=== PATIENT | male | born 1970 | race Caucasian/White ===

== ENCOUNTER 2020-02-15 10:19 | Outpatient (CLI) | payer OTHER, SELFPAY ==
[2020-02-15 10:46] LABS: Basophils Absolute Auto 0.14 K/mm3 (0.00-0.10); Basophils Percent Auto 1.5 % (0.0-1.0); Eosinophils Absolute Auto 0.35 K/mm3 (0.02-0.50); Eosinophils Percent Auto 3.8 % (1.0-6.0); Hemoglobin 15.2 g/dL (14.0-18.0); Immature Granulocyte Absolute 0.05 K/mm3 (0.00-0.00); Immature Granulocyte Percent A 0.5 % (0.0-0.0); Immature Platelet Fraction Pct 2.6 % (1.0-7.0); Lymphocytes Absolute Auto 1.47 K/mm3 (1.10-4.50); Lymphocytes Percent Auto 15.9 % (18.0-42.0); Mean Corpuscular HGB Conc 32.3 g/dL (32.0-36.0); Mean Corpuscular Hemoglobin 26.7 pg (27.0-31.0); Mean Corpuscular Volume 82.6 fL (78.0-102.0); Mean Platelet Volume 9.5 fl (8.7-11.0); Monocytes Absolute Auto 0.41 K/mm3 (0.10-0.90); Monocytes Percent Auto 4.4 % (2.0-11.0); Neutrophils Absolute Auto 6.8 K/mm3 (1.7-7.2); Neutrophils Percent Auto 73.9 % (50.0-70.0); Platelet Count Result 658 K/mm3 (150-420); Red Blood Count 5.69 M/mm3 (4.70-6.10); Red Cell Distribution Width 14.9 % (11.6-14.4); White Blood Count 9.2 K/mm3 (4.8-10.8)
[2020-02-15 11:48] LABS: Alanine Aminotransferase 40 U/L (16-63); Albumin Level 4.3 g/dL (3.4-5.0); Alkaline Phosphatase 84 U/L (46-116); Anion Gap 10 mmol/L (8-16); Aspartate Amino Transferase < 10 U/L (15-37); Bilirubin,Total 0.3 mg/dL (0.00-1.00); Blood Urea Nitrogen 14 mg/dL (7-18); Calcium 9.3 mg/dL (8.5-10.1); Carbon Dioxide 25 mmol/L (21-32); Chloride 103 mmol/L (98-108); Estimated Glomerular Filt Rate > 60; Glucose 74 mg/dL (70-99); Osmolality Calculated 285 mOsm/kg (285-295); Potassium 5.3 mmol/L (3.5-5.1); Sodium 138 mmol/L (136-145); Total Protein 7.3 g/dL (6.4-8.2)
== END 2020-02-15 10:20 | disposition home or self-care (01) ==
PROVIDERS: PCP Family Medicine
DX: D47.1 Chronic myeloproliferative disease (principal)
CPT/HCPCS: 36415; 80053; 85025; 85055

== ENCOUNTER 2020-05-16 10:20 | Outpatient (CLI) | payer OTHER, SELFPAY ==
[2020-05-16 10:35] LABS: Hematocrit 49.3 % (40.0-54.0); Immature Platelet Fraction Pct 2.7 % (1.0-7.0); Mean Corpuscular HGB Conc 32.5 g/dL (32.0-36.0); Mean Corpuscular Hemoglobin 26.1 pg (27.0-31.0); Mean Corpuscular Volume 80.6 fL (78.0-102.0); Mean Platelet Volume 9.5 fl (8.7-11.0); Platelet Count Result 797 K/mm3 (150-420); Red Blood Count 6.12 M/mm3 (4.70-6.10); White Blood Count 9.5 K/mm3 (4.8-10.8)
[2020-05-16 10:57] LABS: Band Neutrophils Percent 0 % (0-6); Basophils Percent Manual 0 % (0-1); Eosinophils Absolute Manual 0.38 K/mm3 (0.02-0.5); Eosinophils Percent Manual 4 % (1-6); Lymphocytes Percent Manual 20 % (18-44); Monocytes Absolute Manual 0.57 K/mm3 (0.1-0.90); Monocytes Percent Manual 6 % (3-9); Neutrophils Absolute Manual 6.65 K/mm3 (1.3-6.7); Neutrophils Percent Manual 70 % (46-73); Total Cells Counted 100
[2020-05-16 10:58] LABS: Platelet Estimate Increased (Adequate)
[2020-05-16 11:54] LABS: Alanine Aminotransferase 29 U/L (16-63); Albumin Level 4.7 g/dL (3.4-5.0); Alkaline Phosphatase 75 U/L (46-116); Anion Gap 13 mmol/L (8-16); Aspartate Amino Transferase < 10 U/L (15-37); Bilirubin,Total 0.6 mg/dL (0.00-1.00); Blood Urea Nitrogen 13 mg/dL (7-18); Calcium 9.5 mg/dL (8.5-10.1); Carbon Dioxide 25 mmol/L (21-32); Chloride 99 mmol/L (98-108); Estimated Glomerular Filt Rate 57; Glucose 91 mg/dL (70-99); Osmolality Calculated 284 mOsm/kg (285-295); Potassium 5.4 mmol/L (3.5-5.1); Sodium 137 mmol/L (136-145); Total Protein 7.3 g/dL (6.4-8.2)
== END 2020-05-16 10:21 | disposition home or self-care (01) ==
LOC: CHSLAB 10:25
PROVIDERS: PCP Family Medicine
DX: D47.1 Chronic myeloproliferative disease (principal)
CPT/HCPCS: 36415; 80053; 85025; 85055

== ENCOUNTER 2020-08-22 10:18 | Outpatient (CLI) | payer OTHER, SELFPAY ==
[2020-08-22 10:35] LABS: Basophils Percent Auto 1.3 % (0.0-1.0); Eosinophils Absolute Auto 0.26 K/mm3 (0.02-0.50); Eosinophils Percent Auto 3.4 % (1.0-6.0); Hematocrit 45.8 % (40.0-54.0); Hemoglobin 14.8 g/dL (14.0-18.0); Immature Granulocyte Absolute 0.02 K/mm3 (0.00-0.00); Immature Granulocyte Percent A 0.3 % (0.0-0.0); Lymphocytes Absolute Auto 1.32 K/mm3 (1.10-4.50); Lymphocytes Percent Auto 17.5 % (18.0-42.0); Mean Corpuscular HGB Conc 32.3 g/dL (32.0-36.0); Mean Corpuscular Hemoglobin 25.9 pg (27.0-31.0); Mean Corpuscular Volume 80.1 fL (78.0-102.0); Mean Platelet Volume 9.1 fl (8.7-11.0); Neutrophils Absolute Auto 5.6 K/mm3 (1.7-7.2); Neutrophils Percent Auto 73.5 % (50.0-70.0); Platelet Count Result 566 K/mm3 (150-420); Red Blood Count 5.72 M/mm3 (4.70-6.10); Red Cell Distribution Width 15.8 % (11.6-14.4); White Blood Count 7.6 K/mm3 (4.8-10.8)
[2020-08-22 11:27] LABS: Alanine Aminotransferase 25 U/L (16-63); Albumin Level 4.3 g/dL (3.4-5.0); Alkaline Phosphatase 73 U/L (46-116); Anion Gap 10 mmol/L (8-16); Aspartate Amino Transferase < 10 U/L (15-37); Bilirubin,Total 0.4 mg/dL (0.00-1.00); Blood Urea Nitrogen 14 mg/dL (7-18); Calcium 9.2 mg/dL (8.5-10.1); Carbon Dioxide 27 mmol/L (21-32); Chloride 103 mmol/L (98-108); Estimated Glomerular Filt Rate > 60; Glucose 76 mg/dL (70-99); Osmolality Calculated 289 mOsm/kg (285-295); Potassium 5.3 mmol/L (3.5-5.1); Sodium 140 mmol/L (136-145); Total Protein 6.8 g/dL (6.4-8.2)
== END 2020-08-22 10:19 | disposition home or self-care (01) ==
PROVIDERS: PCP Family Medicine; Visit Provider Internal Medicine Hematology & Oncology
DX: D47.1 Chronic myeloproliferative disease (principal)
CPT/HCPCS: 36415; 80053; 85025

== ENCOUNTER 2020-12-19 10:27 | Outpatient (CLI) | payer OTHER, SELFPAY ==
[2020-12-19 10:42] LABS: Basophils Percent Auto 1.2 % (0.0-1.0); Eosinophils Absolute Auto 0.27 K/mm3 (0.02-0.50); Eosinophils Percent Auto 3.1 % (1.0-6.0); Hematocrit 45.5 % (40.0-54.0); Immature Granulocyte Absolute 0.04 K/mm3 (0.00-0.00); Immature Granulocyte Percent A 0.5 % (0.0-0.0); Immature Platelet Fraction Pct 2.8 % (1.0-7.0); Lymphocytes Percent Auto 17.3 % (18.0-42.0); Mean Corpuscular Volume 78.9 fL (78.0-102.0); Mean Platelet Volume 9.6 fl (8.7-11.0); Monocytes Percent Auto 4.6 % (2.0-11.0); Neutrophils Absolute Auto 6.4 K/mm3 (1.7-7.2); Neutrophils Percent Auto 73.3 % (50.0-70.0); Platelet Count Result 692 K/mm3 (150-420); Red Blood Count 5.77 M/mm3 (4.70-6.10); Red Cell Distribution Width 14.6 % (11.6-14.4); White Blood Count 8.7 K/mm3 (4.8-10.8)
[2020-12-22 10:54] LABS: Alanine Aminotransferase 32 U/L (16-63); Alkaline Phosphatase 81 U/L (46-116); Anion Gap 11 mmol/L (8-16); Aspartate Amino Transferase < 10 U/L (15-37); Bilirubin,Total 0.3 mg/dL (0.00-1.00); Blood Urea Nitrogen 11 mg/dL (7-18); Calcium 8.9 mg/dL (8.5-10.1); Carbon Dioxide 25 mmol/L (21-32); Chloride 103 mmol/L (98-108); Estimated Glomerular Filt Rate > 60; Glucose 63 mg/dL (70-99); Lactate Dehydrogenase 209 U/L (85-227); Osmolality Calculated 285 mOsm/kg (285-295); Potassium 5.5 mmol/L (3.5-5.1); Sodium 139 mmol/L (136-145); Total Protein 6.7 g/dL (6.4-8.2)
== END 2020-12-19 10:28 | disposition home or self-care (01) ==
LOC: CHSLAB 10:29
PROVIDERS: PCP Family Medicine; Visit Provider Internal Medicine Hematology & Oncology
DX: D47.1 Chronic myeloproliferative disease (principal)
CPT/HCPCS: 36415; 80053; 83615; 85025; 85055

== ENCOUNTER 2021-04-08 09:25 | Outpatient (CLI) | payer OTHER, SELFPAY ==
--- NOTE | ~2021-04-08 | MR_ITS ---
EXAMINATION: MR lumbar spine wo con DATE: 04/08/2021 10:36 INDICATION: Left-sided lumbar radiculopathy. Low back pain. TECHNIQUE: Magnetic resonance imaging (MRI) of the lumbar spine was performed without intravenous con trast. Sequences included sagittal T2-weighted FSE, sagittal T2-weighted FS FSE, sagittal T1-weighted FSE, and axial T2-weighted FSE. COMPARISON: None FINDINGS: There is 7 degrees dextrocurvature of thoracolumbar spine. There is mild chronic anterior w edging of T12-L2 vertebral bodies. There are Schmorl's nodes at most levels. There is mildly decrease d disc height at T12-L1. The distal spinal cord signal intensity is normal. The conus medullaris is a t T12. The following disc levels are specifically discussed: L1-L2: The disc is mildly bulging. There is mild bilateral facet joint osteoarthritis. There is mild left neural foraminal stenosis. There is mild central canal stenosis. L2-L3: The disc is mildly bulging. There is mild bilateral facet joint osteoarthritis. There is mild left neural foraminal stenosis. There is no central canal stenosis. L3-L4: The disc is bulging. There is mild bilateral facet joint osteoarthritis. There is mild bilater al neural foraminal stenosis. There is mild central canal stenosis. L4-L5: The disc is bulging and has an annular fissure. There is mild bilateral facet joint osteoarthr itis. There is mild bilateral neural foraminal stenosis. There is mild central canal stenosis. L5-S1: The disc does not extend beyond the endplate margin. There is mild bilateral facet joint osteo arthritis. There is no neural foraminal stenosis. There is no central canal stenosis. IMPRESSION: 1. Mild lumbar spondylosis. Reviewed, dictated and finalized at location E. L STRUCTURAL DESIGNER IMPRESSION: 1. Mild lumbar spondylosis.
== END 2021-04-08 09:26 | disposition home or self-care (01) ==
LOC: CHSIMG 09:26
PROVIDERS: PCP Family Medicine; Visit Provider Family Medicine
DX: M54.10 Radiculopathy, site unspecified (principal)
CPT/HCPCS: 72148

== ENCOUNTER 2021-05-16 09:52 | Outpatient (CLI) | payer OTHER, SELFPAY ==
[2021-05-16 11:00] LABS: SARS-CoV-2 RNA PCR Negative (Negative)
== END 2021-05-16 09:53 | disposition home or self-care (01) ==
PROVIDERS: PCP Family Medicine; Visit Provider Family Medicine
DX: Z01.818 Encounter for other preprocedural examination (principal); Z20.822 Contact with and (suspected) exposure to COVID-19
CPT/HCPCS: C9803; U0003; U0005

== ENCOUNTER 2021-05-29 09:00 | Outpatient (RCR) | payer OTHER, SELFPAY | END 2021-06-14 23:59 | disposition home or self-care (01) | LOC: CHSWOUND 09:00 | PROVIDERS: PCP Family Medicine; Visit Provider Nurse Practitioner Family | DX: I70.245 Atherosclerosis of native arteries of left leg with ulceration of other part of foot (principal); L97.524 Non-pressure chronic ulcer of other part of left foot with necrosis of bone; D47.1 Chronic myeloproliferative disease; R20.0 Anesthesia of skin; Z95.820 Peripheral vascular angioplasty status with implants and grafts | CPT/HCPCS: 11042; 87070; 87147; 87186; 87205; 97597; 99204; G0463 ==

== ENCOUNTER 2021-06-05 08:20 | Outpatient (CLI) | payer OTHER, SELFPAY ==
[2021-06-05 10:43] LABS: SARS-CoV-2 RNA PCR Negative (Negative)
== END 2021-06-05 08:21 | disposition home or self-care (01) ==
LOC: CHSLAB 08:23
PROVIDERS: PCP Family Medicine; Visit Provider Family Medicine
DX: Z01.818 Encounter for other preprocedural examination (principal); Z20.822 Contact with and (suspected) exposure to COVID-19
CPT/HCPCS: C9803; U0003; U0005

== ENCOUNTER 2021-07-03 08:51 | Outpatient (RCR) | payer OTHER, SELFPAY | END 2021-07-19 23:59 | disposition home or self-care (01) | LOC: CHSWOUND 08:51 | PROVIDERS: PCP Family Medicine; Visit Provider Nurse Practitioner Family | DX: I70.245 Atherosclerosis of native arteries of left leg with ulceration of other part of foot (principal); L97.526 Non-pressure chronic ulcer of other part of left foot with bone involvement without evidence of necrosis; D47.1 Chronic myeloproliferative disease; Z87.891 Personal history of nicotine dependence | CPT/HCPCS: 11042; 87070; 87205 ==

== ENCOUNTER 2021-07-03 09:49 | Outpatient (CLI) | payer OTHER, SELFPAY ==
--- NOTE | ~2021-07-03 | XR_ITS ---
EXAMINATION: XR foot LT min 3V DATE: 07/03/2021 10:14 INDICATION: Left foot pain TECHNIQUE: Dorsoplantar, lateral, and oblique views of the left foot were obtained. COMPARISON: None. FINDINGS: Bone alignment is normal. There is no fracture. There is severe osteoarthritis at the first interphalangeal joint. Mild osteoarthritis is noted at the first metatarsophalangeal joint and in se veral interphalangeal joints. There is mild soft tissue swelling of the first toe. IMPRESSION: 1. Soft tissue swelling of the first toe without acute osseous abnormality. 2. Polyarticular osteoarthritis. Reviewed, dictated and finalized at location A.
== END 2021-07-03 09:50 | disposition home or self-care (01) ==
LOC: CHSIMG 09:52
PROVIDERS: PCP Family Medicine; Visit Provider Nurse Practitioner Family
DX: L97.524 Non-pressure chronic ulcer of other part of left foot with necrosis of bone (principal)
CPT/HCPCS: 73630

== ENCOUNTER 2021-08-01 09:11 | Outpatient (CLI) | payer OTHER, SELFPAY ==
--- NOTE | ~2021-08-01 | MR_ITS ---
EXAMINATION: MR foot LT wo/w con DATE: 08/01/2021 10:44 INDICATION: Left foot osteomyelitis and pain. TECHNIQUE: Magnetic resonance imaging (MRI) of the left foot was performed without and with 20 mL Mul tiHance intravenous contrast. COMPARISON: Left foot radiographs 07/03/2021 FINDINGS: Bone alignment is normal. There is bone marrow edema in proximal half of first distal phala nx and distal half of first proximal phalanx characterized by decreased T1-weighted signal intensity and contrast enhancement, consistent with osteomyelitis. There is a small area of nonenhancing nonvia ble bone in first distal phalanx. There are erosions at first interphalangeal joint, consistent with septic arthritis. There is mild osteoarthritis of many of the metatarsophalangeal and interphalangeal joints. The flexor tendons are intact. IMPRESSION: 1. Osteomyelitis involving first distal phalanx and first proximal phalanx with septic arthritis of f irst interphalangeal joint. Small area of nonviable bone in first distal phalanx. Reviewed, dictated and finalized at location A. IMPRESSION: 1. Osteomyelitis involving first distal phalanx and first proximal phalanx with septic arthritis of first interphalangeal joint. Small area of nonviable bone in first distal phalanx.
== END 2021-08-01 09:12 | disposition home or self-care (01) ==
LOC: CHSIMG 09:12
PROVIDERS: PCP Family Medicine
DX: I70.209 Unspecified atherosclerosis of native arteries of extremities, unspecified extremity (principal)
CPT/HCPCS: 73720; A9577

== ENCOUNTER 2022-05-07 10:12 | Outpatient (CLI) | payer OTHER, SELFPAY ==
[2022-05-07 10:27] LABS: Basophils Absolute Auto 0.11 K/mm3 (0.00-0.10); Basophils Percent Auto 1.1 % (0.0-1.0); Eosinophils Absolute Auto 0.22 K/mm3 (0.02-0.50); Eosinophils Percent Auto 2.1 % (1.0-6.0); Hematocrit 44.6 % (40.0-54.0); Hemoglobin 14.3 g/dL (14.0-18.0); Immature Granulocyte Absolute 0.06 K/mm3 (0.00-0.00); Immature Granulocyte Percent A 0.6 % (0.0-0.0); Immature Platelet Fraction Pct 2.7 % (1.0-7.0); Lymphocytes Absolute Auto 1.34 K/mm3 (1.10-4.50); Lymphocytes Percent Auto 12.8 % (18.0-42.0); Mean Corpuscular HGB Conc 32.1 g/dL (32.0-36.0); Mean Corpuscular Hemoglobin 24.3 pg (27.0-31.0); Mean Corpuscular Volume 75.9 fL (78.0-102.0); Monocytes Absolute Auto 0.55 K/mm3 (0.10-0.90); Monocytes Percent Auto 5.3 % (2.0-11.0); Neutrophils Absolute Auto 8.2 K/mm3 (1.7-7.2); Neutrophils Percent Auto 78.1 % (50.0-70.0); Platelet Count Result 724 K/mm3 (150-420); Red Blood Count 5.88 M/mm3 (4.70-6.10); Red Cell Distribution Width 16.4 % (11.6-14.4); White Blood Count 10.5 K/mm3 (4.8-10.8)
[2022-05-07 11:00] LABS: Alanine Aminotransferase 58 U/L (16-63); Albumin Level 4.1 g/dL (3.4-5.0); Alkaline Phosphatase 80 U/L (46-116); Anion Gap 7 mmol/L (8-16); Aspartate Amino Transferase 16 U/L (15-37); Bilirubin,Total 0.5 mg/dL (0.00-1.00); Blood Urea Nitrogen 8 mg/dL (7-18); Calcium 9.6 mg/dL (8.5-10.1); Carbon Dioxide 29 mmol/L (21-32); Chloride 106 mmol/L (98-108); Estimated Glomerular Filt Rate > 60; Glucose 88 mg/dL (70-99); Osmolality Calculated 291 mOsm/kg (285-295); Sodium 142 mmol/L (136-145); Total Protein 7.3 g/dL (6.4-8.2)
== END 2022-05-07 10:13 | disposition home or self-care (01) ==
LOC: CHSLAB 10:14
PROVIDERS: PCP Family Medicine; Visit Provider Internal Medicine Hematology & Oncology
DX: D45 Polycythemia vera (principal)
CPT/HCPCS: 36415; 80053; 85025; 85055

== ENCOUNTER 2022-11-22 10:37 | Outpatient (CLI) | payer OTHER, SELFPAY ==
[2022-11-22 10:50] LABS: Basophils Absolute Auto 0.12 K/mm3 (0.00-0.10); Basophils Percent Auto 1.3 % (0.0-1.0); Eosinophils Absolute Auto 0.17 K/mm3 (0.02-0.50); Eosinophils Percent Auto 1.8 % (1.0-6.0); Hematocrit 44.4 % (40.0-54.0); Hemoglobin 14.5 g/dL (14.0-18.0); Immature Granulocyte Absolute 0.05 K/mm3 (0.00-0.00); Immature Granulocyte Percent A 0.5 % (0.0-0.0); Immature Platelet Fraction Pct 2.2 % (1.0-7.0); Lymphocytes Absolute Auto 1.27 K/mm3 (1.10-4.50); Lymphocytes Percent Auto 13.8 % (18.0-42.0); Mean Corpuscular HGB Conc 32.7 g/dL (32.0-36.0); Mean Corpuscular Hemoglobin 25.3 pg (27.0-31.0); Mean Corpuscular Volume 77.5 fL (78.0-102.0); Mean Platelet Volume 8.9 fl (8.7-11.0); Monocytes Absolute Auto 0.46 K/mm3 (0.10-0.90); Neutrophils Absolute Auto 7.1 K/mm3 (1.7-7.2); Neutrophils Percent Auto 77.6 % (50.0-70.0); Platelet Count Result 732 K/mm3 (150-420); Red Blood Count 5.73 M/mm3 (4.70-6.10); Red Cell Distribution Width 15.1 % (11.6-14.4); White Blood Count 9.2 K/mm3 (4.8-10.8)
== END 2022-11-22 10:38 | disposition home or self-care (01) ==
LOC: CHSLAB 10:39
PROVIDERS: PCP Family Medicine; Visit Provider Internal Medicine Hematology & Oncology
DX: D45 Polycythemia vera (principal)
CPT/HCPCS: 36415; 85025; 85055

== ENCOUNTER 2023-07-23 08:18 | Outpatient (CLI) | payer OTHER, SELFPAY ==
[2023-07-23 08:36] LABS: Basophils Absolute Auto 0.13 K/mm3 (0.00-0.10); Basophils Percent Auto 1.3 % (0.0-1.0); Eosinophils Percent Auto 3.1 % (1.0-6.0); Hematocrit 48.7 % (40.0-54.0); Hemoglobin 15.2 g/dL (14.0-18.0); Immature Granulocyte Absolute 0.03 K/mm3 (0.00-0.00); Immature Granulocyte Percent A 0.3 % (0.0-0.0); Immature Platelet Fraction Pct 2.6 % (1.0-7.0); Lymphocytes Percent Auto 16.4 % (18.0-42.0); Mean Corpuscular HGB Conc 31.2 g/dL (32-36); Mean Corpuscular Hemoglobin 23.9 pg (27.0-31.0); Mean Corpuscular Volume 76.6 fL (78.0-102.0); Mean Platelet Volume 9.2 fl (8.7-11.0); Monocytes Absolute Auto 0.43 K/mm3 (0.10-0.90); Monocytes Percent Auto 4.4 % (2.0-11.0); Neutrophils Absolute Auto 7.28 K/mm3 (1.70-7.20); Neutrophils Percent Auto 74.5 % (50.0-70.0); Platelet Count Result 809 K/mm3 (150-420); Red Blood Count 6.36 M/mm3 (4.70-6.10); Red Cell Distribution Width 15.5 % (11.6-14.4); White Blood Count 9.8 K/mm3 (4.8-10.8)
== END 2023-07-23 08:19 | disposition home or self-care (01) ==
LOC: CHSLAB 08:20
PROVIDERS: PCP Family Medicine; Visit Provider Internal Medicine Hematology & Oncology
DX: D45 Polycythemia vera (principal)
CPT/HCPCS: 36415; 85025; 85055

== ENCOUNTER 2024-01-21 08:38 | Outpatient (CLI) | payer OTHER, SELFPAY ==
[2024-01-21 09:03] LABS: Basophils Absolute Auto 0.14 K/mm3 (0.00-0.10); Basophils Percent Auto 1.8 % (0.0-1.0); Eosinophils Percent Auto 2.6 % (1.0-6.0); Hematocrit 39.6 % (40.0-54.0); Hemoglobin 13.4 g/dL (14.0-18.0); Immature Granulocyte Absolute 0.06 K/mm3 (0.00-0.00); Immature Granulocyte Percent A 0.8 % (0.0-0.0); Immature Platelet Fraction Pct 3.3 % (1.0-7.0); Lymphocytes Absolute Auto 1.36 K/mm3 (1.10-4.50); Lymphocytes Percent Auto 17.9 % (18.0-42.0); Mean Corpuscular HGB Conc 33.8 g/dL (32-36); Mean Corpuscular Hemoglobin 25.5 pg (27.0-31.0); Mean Corpuscular Volume 75.3 fL (78.0-102.0); Mean Platelet Volume 9.4 fl (8.7-11.0); Monocytes Absolute Auto 0.43 K/mm3 (0.10-0.90); Monocytes Percent Auto 5.7 % (2.0-11.0); Neutrophils Absolute Auto 5.39 K/mm3 (1.70-7.20); Neutrophils Percent Auto 71.2 % (50.0-70.0); Platelet Count Result 701 K/mm3 (150-420); Red Blood Count 5.26 M/mm3 (4.70-6.10); Red Cell Distribution Width 13.9 % (11.6-14.4); White Blood Count 7.6 K/mm3 (4.8-10.8)
[2024-01-21 09:50] LABS: Alanine Aminotransferase 73 U/L (16-63); Albumin Level 3.8 g/dL (3.4-5.0); Alkaline Phosphatase 109 U/L (46-116); Anion Gap 6 mmol/L (4-12); Aspartate Amino Transferase 22 U/L (15-37); Bilirubin,Total 0.3 mg/dL (0.00-1.00); Blood Urea Nitrogen 8 mg/dL (7-18); Calcium 9.3 mg/dL (8.5-10.1); Carbon Dioxide 29 mmol/L (21-32); Chloride 102 mmol/L (98-108); Estimated Glomerular Filt Rate > 60; Glucose 104 mg/dL (70-99); Osmolality Calculated 282 mOsm/kg (285-295); Potassium 4.9 mmol/L (3.5-5.1); Sodium 137 mmol/L (136-145); Total Protein 6.8 g/dL (6.4-8.2)
== END 2024-01-21 08:39 | disposition home or self-care (01) ==
LOC: CHSLAB 08:43
PROVIDERS: PCP Family Medicine
DX: D45 Polycythemia vera (principal)
CPT/HCPCS: 36415; 80053; 85025; 85055

== ENCOUNTER 2024-04-28 09:14 | Outpatient (CLI) | payer OTHER, SELFPAY ==
[2024-04-28 09:20] VITALS: BMI 27.4
[2024-04-28 09:40] VITALS: BP 146/89; PULSE 78; RESP 16; TEMP 36.4; O2SAT 99
[2024-04-28 09:43] LABS: Basophils Absolute Auto 0.14 K/mm3 (0.00-0.10); Basophils Percent Auto 1.2 % (0.0-1.0); Eosinophils Absolute Auto 0.23 K/mm3 (0.02-0.50); Eosinophils Percent Auto 1.9 % (1.0-6.0); Hemoglobin 15.2 g/dL (14.0-18.0); Immature Granulocyte Absolute 0.04 K/mm3 (0.00-0.00); Immature Granulocyte Percent A 0.3 % (0.0-0.0); Immature Platelet Fraction Pct 2.1 % (1.0-7.0); Lymphocytes Absolute Auto 1.72 K/mm3 (1.10-4.50); Lymphocytes Percent Auto 14.5 % (18.0-42.0); Mean Corpuscular HGB Conc 30.4 g/dL (32-36); Mean Corpuscular Hemoglobin 22.2 pg (27.0-31.0); Mean Platelet Volume 9.1 fl (8.7-11.0); Monocytes Absolute Auto 0.58 K/mm3 (0.10-0.90); Monocytes Percent Auto 4.9 % (2.0-11.0); Neutrophils Absolute Auto 9.16 K/mm3 (1.70-7.20); Neutrophils Percent Auto 77.2 % (50.0-70.0); Platelet Count Result 974 K/mm3 (150-420); Red Blood Count 6.85 M/mm3 (4.70-6.10); White Blood Count 11.9 K/mm3 (4.8-10.8)
--- OUTSIDE RECORDS SUMMARY | 2024-04-28 10:01 | XMS_ITS | Data Portability ---
Author [facility] Address [address] [place] [address] Assessment No assessment recorded. Plan of Treatment Reminders Order Date Submit Date Provider Last Modified By Organization Details Last Modified Time Details Appointments None recorded. Lab None recorded. Referral pain management referral 2015 016 wayne Villalobos, [address] [facility] , [address] [address], [place], [address], 6 12:10:03 mental health specialist referral - rheumatolo gy wants him seen by podiatry 2014 015 WILIAM Rudolph, [address] [place] [address], [address], 5 18:00:29 Procedures None recorded. Surgeries None recorded. Imaging x-ray, hip 2 views 2015 016 [facility], [address] [place], [address], 6 13:17:43 Medication Orders [place] 5 mg-325 mg tablet 2015 Rita bbertoglio 1 [id number], [address] , [place], [place], [id number], 6 09:41:56 [place] 5 mg-[address] [facility], [address], [place], [address], 6 11:51:13 [place] 5 mg-325 mg tablet [address] [facility], [address] [place], [address], 5 12:33:41 [place] 5 mg-325 mg tablet [address] [facility], [address] [place], [address], 5 15:07:30 Patient TargetsNo targets recorded. Patient Instructions Encounter Date Encounter Id Patient Instructions Last Modified By Organization Details Last Modified Time 09/27/2014 [id number] leg pain: care instructions [email or web address] Not available 09/27/2014 15:09:22 11/05/2014 [id number] leg pain: care instructions [email or web address] Not available 11/05/2014 12:21:00 03/16/2015 [id number] leg pain: care instructions [email or web address] Not available 03/16/2015 11:29:53 06/21/2015 [id number] hip pain: care instructions [email or web address] Not available 06/21/2015 16:56:37 leg pain: care instructions [email or web address] Not available 06/21/2015 16:56:37 Reason for Referral Hospital Medical Assistant Referral for Vasc ulitis of the skin vasculitis and left foot pain rheumatology wants him seen by podiatry Referring Physician: Alonso Chan [facility], Encounter Date: 02/09/2015 Pain Management Referral for Pain in lower limb pain in lft foot and leg due to PVD Referring Physician: Alonso Chan [facility], Encounter Date: 03/16/2015 Results Created Date Observation Date Name Description Value Unit Range Abnormal Flag Note LastModifiedBy Organization Detail LastModifiedTime 02/10/20 15 02/17/2015 drug scree n, urine summary FINAL ===== ===== ===== ===== ===== ===== ===== ===== ===== ===== ===== ===== ===== === TOXAS SURE COMP DRUG SRINIVAS SIS,U R ===== ===== ===== ===== ===== ===== ===== ===== ===== ===== ===== ===== ===== === TEST RESUL T FLAG UNITS DRUG PRESE NT AND DECLA RED FOR PRESC RIPTI ON VERIF ICATI ON HYDRO CODON E 285 EXPEC JAELYN NG/MG CREAT HYDRO MORPH ONE 763 EXPEC JAELYN NG/MG CREAT DIHYD ROCOD EINE 140 EXPEC JAELYN NG/MG CREAT NORHY DROCO DONE 1367 EXPEC JAELYN NG/MG CREAT SOURC ES OF HYDRO CODON E INCLU DE SCHED ULED PRESC RIPTI ON MEDIC ATION S. HYDRO MORPH ONE, DIHYD ROCOD EINE AND NORHY DROCO DONE ARE EXPEC JAELYN METAB OLITE S OF HYDRO CODON E. HYDRO MORPH ONE AND DIHYD ROCOD EINE ARE ALSO AVAIL ABLE SCHED ULED PRESC RIPTI ON MEDIC ATION S. DRUG PRESE NT NOT DECLA RED FOR PRESC RIPTI ON VERIF ICATI ON CARBO XY-TH C >704 UNEXP ECTED NG/MG CREAT CARBO XY-TH C IS A METAB OLITE OF TETRA HYDRO CANNA BINOL (THC) . SOURC E OF THC IS MOST COMMO NLY ILLIC IT, BUT THC IS ALSO PRESE NT IN A SCHED ULED PRESC RIPTI ON MEDIC ATION . SALIC YLATE PRESE NT UNEXP ECTED NAPRO XEN PRESE NT UNEXP ECTED DRUG ABSEN T BUT DECLA RED FOR PRESC RIPTI ON VERIF ICATI ON ACETA MINOP HEN NOT DETEC JAELYN UNEXP ECTED ACETA MINOP HEN, INDIC ATED IN THE DECLA RED MEDIC ATION LIST, IS NOT ALWAY S DETEC JAELYN EVEN WHEN USED DIREC JAELYN. ===== ===== ===== ===== ===== ===== ===== ===== ===== ===== ===== ===== ===== === TEST RESUL T FLAG UNITS REF RANGE CREAT ININE 142 MG/DL >=20 ===== ===== ===== ===== ===== ===== ===== ===== ===== ===== ===== ===== ===== === DECLA RED MEDIC ATION S: THE SACHIN ING AND INTER PRETA TION ON THIS REPOR T ARE BASED ON THE FOLLO WING DECLA RED MEDIC ATION S. UNEXP ECTED RESUL TS MAY ARISE FROM INACC URACI ES IN THE DECLA RED MEDIC ATION S. NOT E: THE TESTI NG SCOPE OF THIS PANEL INCLU FOSTER THESE MEDIC ATION S: HYDRO CODON E (NORC O) NOT E: THE TESTI NG SCOPE OF THIS PANEL DOES NOT INCLU DE SMALL TO MODER ATE AMOUN TS OF THESE REPOR JAELYN MEDIC ATION S: ACETA MINOP HEN (NORC O) ===== ===== ===== ===== ===== ===== ===== ===== ===== ===== ===== ===== ===== === FOR CLINI CARLO CONSU LTATI ON, PLEAS E CALL [phone]. ===== ===== ===== ===== ===== ===== ===== ===== ===== ===== ===== ===== ===== === Not Available [facility] [address] [facility] [place], [address], 02/17/2015 09:29:33 02/10/20 15 02/17/2015 drug scree n, urine pdf . Not Available [facility] [address] [facility] [place], [address], 02/17/2015 09:29:33 08/26/19 16 09/04/2015 drug scree n, urine summary FINAL ===== ===== ===== ===== ===== ===== ===== ===== ===== ===== ===== ===== ===== === TOXAS SURE COMP DRUG SRINIVAS SIS,U R ===== ===== ===== ===== ===== ===== ===== ===== ===== ===== ===== ===== ===== === TEST RESUL T FLAG UNITS DRUG PRESE NT NOT DECLA RED FOR PRESC RIPTI ON VERIF ICATI ON CARBO XY-TH C 883 UNEXP ECTED NG/MG CREAT CARBO XY-TH C IS A METAB OLITE OF TETRA HYDRO CANNA BINOL (THC) . SOURC E OF THC IS MOST COMMO NLY ILLIC IT, BUT THC IS ALSO PRESE NT IN A SCHED ULED PRESC RIPTI ON MEDIC ATION . NAPRO XEN PRESE NT UNEXP ECTED DRUG ABSEN T BUT DECLA RED FOR PRESC RIPTI ON VERIF ICATI ON HYDRO CODON E NOT DETEC JAELYN UNEXP ECTED NG/MG CREAT ACETA MINOP HEN NOT DETEC JAELYN UNEXP ECTED ACETA MINOP HEN, INDIC ATED IN THE DECLA RED MEDIC ATION LIST, IS NOT ALWAY S DETEC JAELYN EVEN WHEN USED DIREC JAELYN. ===== ===== ===== ===== ===== ===== ===== ===== ===== ===== ===== ===== ===== === TEST RESUL T FLAG UNITS REF RANGE CREAT ININE 36 MG/DL >=20 ===== ===== ===== ===== ===== ===== ===== ===== ===== ===== ===== ===== ===== === DECLA RED MEDIC ATION S: THE SACHIN ING AND INTER PRETA TION ON THIS REPOR T ARE BASED ON THE FOLLO WING DECLA RED MEDIC ATION S. UNEXP ECTED RESUL TS MAY ARISE FROM INACC URACI ES IN THE DECLA RED MEDIC ATION S. NOT E: THE TESTI NG SCOPE OF THIS PANEL INCLU FOSTER THESE MEDIC ATION S: HYDRO CODON E (NORC O) NOT E: THE TESTI NG SCOPE OF THIS PANEL DOES NOT INCLU DE SMALL TO MODER ATE AMOUN TS OF THESE REPOR JAELYN MEDIC ATION S: ACETA MINOP HEN (NORC O) NOT E: THE TESTI NG SCOPE OF THIS PANEL DOES NOT INCLU DE FOLLO WING REPOR JAELYN MEDIC ATION S: AMLOD IPINE CILOS TAZOL TOPIC AL ===== ===== ===== ===== ===== ===== ===== ===== ===== ===== ===== ===== ===== === FOR CLINI CARLO CONSU LTATI ON, PLEAS E CALL [phone]. ===== ===== ===== ===== ===== ===== ===== ===== ===== ===== ===== ===== ===== === Not Available [facility] [address] [facility] [place], [address], 09/04/2015 13:06:16 08/26/19 16 09/04/2015 drug scree n, urine pdf . Not Available [facility] [address] [facility] [place], [address], 09/04/2015 13:06:16 10/08/19 15 10/06/2014 imagi ng/di agnos tic resul t No observ ation record ed. [email or web address] [facility] [address] [place], [address], 11/05/2014 12:17:44 07/15/19 16 06/29/2015 x-ray , hip 2 views No observ ation record ed. [email or web address] [facility] [address] [place], [address], 07/15/2015 13:17:43 Result Notes None recorded. Problems Name Problem SNOMED Code Status Onset Date Resolution Date Notes Provider Name and Address Organization Details Recorded Time Pain in lower limb 49553783 Active Alonso Chan PA-C Attn: Accountkrish henry,[address] [facility], [place], [address], [facility] 6 16:48:08 Vasculitis of the skin 77470547 Active Alonso Chan PA-C Attn: Accountin g,[address] [facility], [place], [address], [facility] 6 16:48:08 Hip pain 82771372 Active Alonso Chan PA-C Attn: Accountkrish g,[address] [facility], [place], [address], [facility] 6 16:48:08 Problem Notes None recorded. Procedures Surgical History Date Name Laterality Status Provider Name and Address Organization Details Recorded Time Heart Surgery completed Tracy Bonilla MA [place] - [facility] 09/27/2014 14:45:15 Imaging Results Imaging Date Name Status LastModified by Organiz ation Details LastModified Time 10/06/2014 imaging/diag nostic result completed [address], [address], 11/05/2014 12:17:44 06/29/2015 x-ray, hip 2 views completed [email or web address] [place] [address], [address], 07/15/2015 13:17:43 Procedure Notes None recorded. Medical Equipment None Reported. Allergies No known drug allergies Medications Name Sig Start Date Stop Date Status Note LastModified by Organization Details LastModified Time cilostazol 100 mg tablet Take 1 tablet twice a day by oral route. active Not Available Not Available No t Available Nitro-Bid 2 % transdermal ointment Apply 1 inch every 12 hours by transdermal route. active On left foot Not Available Not Available Not Available amlodipine 10 mg tablet Take 1 tablet every day by oral route. active Not Available Not Available No t Available [place] 5 mg-325 mg tablet Take 1 tablet every 8 hours by oral route for 30 days. 2015 active Not Available Not Available Not Avai lable Vitals Date Recorded Body height Body mass index (BMI) Body weight Systolic blood pressure Diastolic blood pressure Provider Name and Address Organization Details Last Updated DateTime 09/27/2014 182.88 cm 26.2 kg/m2 22911.96 8173 g 120 mm[Hg] 90 mm[Hg] Tracy Bonilla MA [facility] 5 14:49:30 Date Recorded Body height Body weight Body mass index (BMI) Systolic blood pressure Diastolic blood pressure Provider Name and Address Organization Details Last Updated DateTime 11/05/2014 182.88 cm 96801.77 4601 g 26.8 kg/m2 140 mm[Hg] 100 mm[Hg] Tracy Bonilla MA [facility] 5 12:03:21 Date Recorded Body height Body mass index (BMI) Body weight Systolic blood pressure Diastolic blood pressure Provider Name and Address Organization Details Last Updated DateTime 02/09/2015 182.88 cm 27.6 kg/m2 46843.40 6532 g 130 mm[Hg] 90 mm[Hg] Tracy Bonilla MA [facility] 5 15:09:51 Date Recorded Body mass index (BMI) Body weight Body height Systolic blood pressure Diastolic blood pressure Provider Name and Address Organization Details Last Updated DateTime 03/16/2015 27.5 kg/m2 63891.25 111 g 182.88 cm 128 mm[Hg] 82 mm[Hg] Sara Ortega MA [facility] 6 11:04:32 Date Recorded Body weight Body height Body mass index (BMI) Systolic blood pressure Diastolic blood pressure Provider Name and Address Organization Details Last Updated DateTime 06/21/2015 10988.49 2193 g 182.88 cm 25.9 kg/m2 124 mm[Hg] 90 mm[Hg] Emilia Nixon RN [facility] 6 16:23:27 Social History Question Answer Notes LastModified by Organizat ion Details LastModified Time Tobacco Smoking Status Current Every Day Smoker Tracy Bonilla MA null, [facility] 09/27/2014 14:45:15 How Much Tobacco Do You Smoke? 0.5 PPD Information not available 09/27/2014 How Many Years Have You Smoked Tobacco? 10 Information not available 09/27/2014 Sex: Unknown Functional Status None recorded. Mental Status None recorded. Family History Nothing Reported. Medical History Condition Response Blood Clots Y Past Encounters Encounter ID Performer Location Encounter Start Date Encounter Closed Date Diagnosis/Indication Diagnosis SNOMED-CT Code Diagnosis ICD10 Code Diagnosis Note [id number] Sara Ortega MA [facility] [address] [place] [address] 09/27/2014 14:34:36 09/27/2014 15:49:31 Pain in lower limb 44547402 [id number] Alonso Chan PA-C [facility] [address] [place] [address] 11/05/2014 11:49:44 11/05/2014 12:21:28 Pain in lower limb 35530604 [id number] Alonso Chan PA-C [facility] [address] [place] [address] 02/09/2015 15:03:40 02/09/2015 15:43:32 Vasculitis of the skin 53771510 L95.9 [id number] Alonso Chan PA-C [facility] [address] [place] [address] 03/16/2015 11:00:31 03/16/2015 12:10:02 Pain in lower limb 75208907 M79.673 [id number] ABIMAEL Hidalgo [facility] [address] [place] [address] 06/21/2015 16:08:59 06/21/2015 17:01:39 Vasculitis of the skin 76800852 L95.9 Pain in lower limb 84710 006 M79.673 Hip pain 11193875 M25.55 2 Health Concerns Section Related Observation LastModified by Organization Detai ls LastModified Time None Recorded Concern Status LastModified by Organization Details LastModified Time None Recorded Advance Directives Directive None Recorded Payers Encounter Date Sequence Insurance Name Policy Number Policy Allen Covered Member ID Allen Member ID Guarantor Name 09/27/2014 1 [place] [employer] Jack Pruitt [id number] Jack Pruitt 11/05/2014 1 [place] [facility] [place] PUBLIC AID Jack Edmond [id number] Jack Edmond 02/09/2015 1 [place]: [facility] AID Jack Edmond [id number] Jack Edmond 03/16/2015 1 [place]: [facility] AID Jack Edmond [id number] Jack Edmond 06/21/2015 1 [place]: [facility] AID [facility] Edmond [id number] Jack Edmond Notes Date Note Type Note Provider Name and Address Organization Details Recorded Time 09/27/2014 text/html s/p vascular surgery. see report. now has swelling and pain in LE and foot and numbness on lateral leg and a profound scar/eschar on posterior knee. Alonso Chan PA-C Attn: Accounting,[address] [facility], [place], [address], [facility] 09/27/2014 15:02:50 11/05/2014 text/html follow up on vascular insufficiency in left leg. see consult. has a rheum consult. Alonso Chan PA-C Attn: Accounting,[address] [facility], [place], [address], [facility] 11/05/2014 12:20:34 02/09/2015 text/html see notes. vascu lar referred to rheum. rheum referred to podiatry. Alonso Chan PA-C Attn: Accounting,[address] [place], [address], [facility] 02/09/2015 15:26:06 03/16/2015 text/html podiatry never responded. wants pain management. Alonso Chan PA-C Attn: Accounting,[address] [facility], [place], [address], [facility] 03/16/2015 11:30:02 06/21/2015 text/html was told pain mn g. april of 2016 problems with back and hip. Alonso Chan PA-C Attn: Accounting,[address] [place], [address], [facility] 06/21/2015 16:48:19
--- OUTSIDE RECORDS SUMMARY | 2024-04-28 10:01 | XMS_ITS | Encounter Summary ---
Author Organization [facility] Address [facility] [place] [address] Care Team Providers Care Clarifier Operator Helper Name Role Phone Oskar Li MD Primary Care Provider [phone] Encounter Details Date Type Department Care Team (Latest Contact Info) Description 12/31/2017 Abstract [facility] , Shaina Larios MD Social History Tobacco Use Types Packs/Day Years Used Date Smoking Tobacco: Never Assessed Sex and Gender Information Value Date Recorded Sex Assigned at Not on file Legal Sex Male 9:20 PM CDT Gender Identity Not on file Sexual Orientation Not on file documented as of this encounter Plan of Treatment Not on file documented as of this encounter Visit Diagnoses Not on filedocumented in this encounter Care Teams Clarifier Operator Helper Relationship Specialty Start Date End Date Oskar Li MD [address] [place] [address] PCP - General FAMILY PRACTICE 12/20/17 documented as of this encounter
--- OUTSIDE RECORDS SUMMARY | 2024-04-28 10:01 | XMS_ITS | Clinical Summary ---
Author Organization [facility] Address [address] [place] [address] Phone Care Team Providers Care Supervisor Photocomposition Name Role Phone Alonso Chan Primary Care Provider [phone] Social History Tobacco Use Types Packs/Day Years Used Date Smoking Tobacco: Never Assessed Sex and Gender Information Value Date Recorded Sex Assigned at Not on file Legal Sex Male 9:08 PM CDT Gender Identity Not on file Sexual Orientation Not on file Plan of Treatment Not on file Insurance MEDICAID [place] Care Teams Supervisor Photocomposition Relationship Specialty Start Date End Date Alonso Chan PAC [address] [place] [id number] PCP - General Physician Medical Coding Auditor 06/29/15
--- OUTSIDE RECORDS SUMMARY | 2024-04-28 10:01 | XMS_ITS | Clinical Summary ---
Author Organization [facility] Address [address] [place] [address] Care Team Providers Care Front Desk Attendant Name Role Phone Oskar Li MD Primary Care Provider Allergies No known active allergies Medications aspirin EC 81 MG EC tablet Take 1 tablet by mouth daily. 12/20/2016 Active Cholecalciferol (VITAMIN D-3) 1000 units Cap 04/12/2017 Acti ve omeprazole 20 MG capsule Take 1 capsule by mouth daily. 04/12/2017 Active ruxolitinib 20 MG tabletIndicatio ns:Myeloprolife rative disease ([facility]),Microc ytic red blood cells,Thrombocy tosis,Splenomeg chevy Take 1 tablet by mouth 2 (two) times daily. 60 tablet 12 11/10/2020 Active calcium carbonate-vitam in D ([place] CALCIUM-VITAMIN D) 500-200 MG-UNIT Tab Active Active Problems Problem Noted Date Diagnosed Date Pain in lower limb 05/25/2020 Vasculitis of skin 05/25/2020 Hip pain 05/25/2020 Hyperkalemia 10/18/2017 Myeloproliferative disease ([facility]) Peripheral neuropathy 01/11/2017 Splenomegaly 01/11/2017 Left upper quadrant pain 12/21/2016 Fatigue 12/18/2016 Leukocytosis 12/18/2016 Microcytic red blood cells 12/18/2016 Thrombocytosis 12/18/2016 Social History Tobacco Use Types Packs/Day Years Used Date Smoking Tobacco: Former Smokeless Tobacco: Never Alcohol Use Standard Drinks/Week Comments No 0 (1 standard drink = 0.6 oz pur e alcohol) AUDIT-C Answer Date Recorded Frequency of Alcohol Consumption Never 04/16/2018 Average Number of Drinks Not on file 019 Frequency of Binge Drinking Not on file 03/29 Sex and Gender Information Value Date Recorded Sex Assigned at Not on file Legal Sex Male 9:20 PM CDT Gender Identity Not on file Sexual Orientation Not on file Last Filed Vital Signs Vital Sign Reading Time Taken Comments Blood Pressure 149/100 12/28/2020 2:39 PM CDT Pulse 86 12/28/2020 2:39 PM CDT Temperature 36.2 C (97.2 F) 12/28/2020 2:39 PM CDT Respiratory Rate 22 12/28/2020 2:39 PM CDT Oxygen Saturation 100% 12/28/2020 2:39 PM CDT Inhaled Oxygen Concentration - - Weight 97.2 kg (214 lb 3.2 oz) 12/28/2020 2:39 P M CDT Height 182.9 cm (6') 05/25/2020 12:58 PM CDT Body Mass Index 29.05 05/25/2020 12:58 PM CDT Plan of Treatment Health Maintenance Due Date Last Done Comments Colorectal Cancer Screening Colonoscopy (10 Years) 1971 Annual Physical 05/10/1974 Hepatitis C 05/10/1989 DTaP, Tdap and Td Vaccines ( 1 - Tdap) 05/10/1990 Hepatitis B Vaccines (1 of 3 - 19+ 3-dose series) 05/10/1990 Zoster Vaccines (1 of 2) 05/10/2021 COVID-19 Vaccine (3 - 2023-2 5 season) 2023 07/06/2020, 06/15/2020 Influenza Adult (#1) 2023 Meningococcal B Vaccine Aged Out No l onger eligible based on patient's age to complete this topic Meningococcal Vaccine Aged Out No beatriz mika eligible based on patient's age to complete this topic Pneumococcal Vaccine: Pediatrics (0 to 5 Years) and At-Risk Patients (6 to 64 Years) Aged Out No longer eligible b ased on patient's age to complete this topic RSV Immunizations Under 20 Months Aged Out No longer eligible b ased on patient's age to complete this topic Insurance MEDICAID DEPT OF [address] Care Teams Front Desk Attendant Relationship Specialty Start Date End Date Oskar Li MD [address] [place] [phone] PCP - General [facility] 12/20/17
[2024-04-28 10:18] VITALS: BP 126/84; PULSE 80; RESP 14; TEMP 36.4; O2SAT 98
--- NOTE | 2024-04-28 11:07 | PC.NURSE ---
Patient tolerated Therapeutic phlebotomy well. Patient reported has had many of these in the past. Education given. NO concerns voiced.
== END 2024-04-28 09:15 | disposition home or self-care (01) ==
PROVIDERS: PCP Family Medicine; Visit Provider Internal Medicine Hematology & Oncology
DX: D45 Polycythemia vera (principal); D75.839 Thrombocytosis, unspecified; Z79.899 Other long term (current) drug therapy; Z15.89 Genetic susceptibility to other disease
CPT/HCPCS: 36415; 85025; 85055; 99195

== ENCOUNTER 2024-08-21 14:21 | Emergency (ER) | payer OTHER, SELFPAY ==
[2024-08-21] VITALS (7 sets, daily range): BP systolic 123–132; BP diastolic 81–92; PULSE 64–70; RESP 16–20; TEMP 36.4; O2SAT 92–99
--- NOTE | ~2024-08-21 | XR_ITS ---
EXAM/ PROCEDURE: XR elbow RT min 3V - 08/21/2024 15:30 CDT HISTORY: 54 years old Male with Fall, Rt. elbow pain COMPARISON: None available TECHNIQUE: Three view(s) FINDINGS/ IMPRESSION: There are no fractures or dislocations.Joint spaces are within normal limits. Reviewed, dictated and finalized at location A.
--- NOTE | ~2024-08-21 | XR_ITS ---
HISTORY: Fall, Rt. wrist pain COMPARISON: None TECHNIQUE: 3 views of the right wrist were performed. FINDINGS: No acute fracture is identified. The carpal arcs are intact. Mild radiocarpal joint space narrowing with sclerosis of the distal radius is present. The remaining visualized joint spaces are otherwise preserved. Bone mineralization is age-appropriate. No significant soft tissue swelling is noted. No radiopaque foreign body is identified. IMPRESSION: No acute fracture or dislocation. Reviewed, dictated and finalized at location A.
--- NOTE | ~2024-08-21 | XR_ITS ---
EXAM/ PROCEDURE: XR lumbar spine 2-3V - 08/21/2024 15:30 CDT HISTORY: 54 years old Male with FALL, low back pain. Limited ROM, pt. unable to stand COMPARISON: None available TECHNIQUE: Three view(s) FINDINGS/ IMPRESSION: Acute displaced fracture of the right transverse process of L4 vertebral body. Multilevel degenerative changes are seen. Atherosclerotic calcifications are seen in the aorta. Reviewed, dictated and finalized at location A.
--- NOTE | ~2024-08-21 | XR_ITS ---
EXAM/ PROCEDURE: XR shoulder RT min 2V - 08/21/2024 15:30 CDT HISTORY: 54 years old Male with Fall, Rt. shoulder pain COMPARISON: None available TECHNIQUE: Two view(s) FINDINGS/ IMPRESSION: Lucency in the right distal clavicle may represent a nondisplaced fracture. Correlate with point tend erness. Joint space narrowing, subchondral sclerosis, subchondral cyst formation and osteophyte formation, co mpatible with mild osteoarthritis. Reviewed, dictated and finalized at location A.
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
[2024-08-21] MEDS: HYDROcodone/acetaminophen (*CRX) 10-325 MG TABLET 1 TAB PO (14:52)
[2024-08-21] MEDS: TETANUS,DIPHTHERIA,AC PERTUSSIS ADULT 0.5 ML (ADACEL) IM (14:54)
--- NOTE | 2024-08-21 15:12 | PC.NURSE ---
Patient taken down to radiology
--- NOTE | 2024-08-21 16:29 | PC.NURSE ---
Patient refuses IV, per erp patient's transfer status does not require one at this time.
--- NOTE | 2024-08-21 17:25 | PC.NURSE ---
As patient is rolling out door on EMS stretcher patient states he will let EMS start his IV when they get into the truck.
== END 2024-08-21 17:25 | disposition short-term general hospital (02) ==
PROVIDERS: Emergency Provider Emergency Medicine; PCP Family Medicine
DX: S32.009A Unspecified fracture of unspecified lumbar vertebra, initial encounter for closed fracture (principal); S42.034A Nondisplaced fracture of lateral end of right clavicle, initial encounter for closed fracture; Z79.01 Long term (current) use of anticoagulants; Z23 Encounter for immunization; V18.0XXA Pedal cycle driver injured in noncollision transport accident in nontraffic accident, initial encounter
CPT/HCPCS: 72100; 73030; 73080; 73110; 90471; 90715; 99285; A9270

== ENCOUNTER 2024-09-03 10:46 | Outpatient (RCR) | payer OTHER, SELFPAY ==
--- NOTE | 2024-09-03 12:01 | OPREHPOC ---
Outpatient Therapy Plan of Care This is a Multidisciplinary Plan of Care that may contain components documented by all disciplines (PT, OT, and ST.) PT Problem 1 PT Problem #1 Knowledge Deficit PT Goal 1 Goal / Goal Update Independent and compliant with HEP. Target Visit 2 PT Problem 2 PT Problem #2 Pain PT Goal 1 Goal / Goal Update Pt to report no worse than 3/10 pain with activity . Target Visit 12 PT Problem 3 PT Problem #3 Impaired Strength PT Goal 1 Goal / Goal Update Pt to improve gross bilat hip flexion to 4/5 without pain for improved ability to get up/down from chair. Pt to improve gross bilat knee strength to 5/5 without pain for improved ability to ambulate and climb stairs. Target Visit 12 PT Problem 4 PT Problem #4 Impaired Functional Mobility PT Goal 1 Goal / Goal Update Pt to improve 5xSTS time to 15 seconds or less. Pt to improve 6MWT distance to 500ft using LRAD without rest breaks. Pt to improve Tinetti by 5 points indicating moderate fall risk. Pt to improve TUG time to 35 seconds or less. Pt to note 20% improvement on LEFS. Target Visit 12
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
--- NOTE | 2024-10-06 11:55 | OPREHPOC ---
Outpatient Therapy Plan of Care This is a Multidisciplinary Plan of Care that may contain components documented by all disciplines (PT, OT, and ST.) PT Problem 1 PT Problem #1 Knowledge Deficit PT Goal 1 Goal / Goal Update Independent and compliant with HEP. Target Visit 2 Progress Met PT Problem 2 PT Problem #2 Pain PT Goal 1 Goal / Goal Update Pt to report no worse than 3/10 pain with activity . Target Visit 12 Progress Not Met PT Goal 2 Goal / Goal Update continue PT Problem 3 PT Problem #3 Impaired Strength PT Goal 1 Goal / Goal Update Pt to improve gross bilat hip flexion to 4/5 without pain for improved ability to get up/down from chair. -not met Pt to improve gross bilat knee strength to 5/5 without pain for improved ability to ambulate and climb stairs. -not met Target Visit 12 Progress Not Met PT Goal 2 Goal / Goal Update continue PT Problem 4 PT Problem #4 Impaired Functional Mobility PT Goal 1 Goal / Goal Update Pt to improve 5xSTS time to 15 seconds or less. - met Pt to improve 6MWT distance to 500ft using LRAD without rest breaks. -met Pt to improve Tinetti by 5 points indicating moderate fall risk. -met Pt to improve TUG time to 35 seconds or less. -met Pt to note 20% improvement on LEFS. -not met Target Visit 12 Progress Partially Met PT Goal 2 Goal / Goal Update continue #5
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
--- NOTE | 2024-10-13 09:25 | OPREHPOC ---
Outpatient Therapy Plan of Care This is a Multidisciplinary Plan of Care that may contain components documented by all disciplines (PT, OT, and ST.) PT Problem 1 PT Problem #1 Knowledge Deficit PT Goal 1 Goal / Goal Update Independent and compliant with HEP. Target Visit 2 Progress Met PT Problem 2 PT Problem #2 Pain PT Goal 1 Goal / Goal Update Pt to report no worse than 3/10 pain with activity . Target Visit 12 Progress Not Met PT Goal 2 Goal / Goal Update continue Progress Not Met PT Problem 3 PT Problem #3 Impaired Strength PT Goal 1 Goal / Goal Update Pt to improve gross bilat hip flexion to 4/5 without pain for improved ability to get up/down from chair. -not met Pt to improve gross bilat knee strength to 5/5 without pain for improved ability to ambulate and climb stairs. -not met Target Visit 12 Progress Not Met PT Goal 2 Goal / Goal Update continue Progress Not Met PT Problem 4 PT Problem #4 Impaired Functional Mobility PT Goal 1 Goal / Goal Update Pt to improve 5xSTS time to 15 seconds or less. - met Pt to improve 6MWT distance to 500ft using LRAD without rest breaks. -met Pt to improve Tinetti by 5 points indicating moderate fall risk. -met Pt to improve TUG time to 35 seconds or less. -met Pt to note 20% improvement on LEFS. -not met Target Visit 12 Progress Partially Met PT Goal 2 Goal / Goal Update continue #5 Progress Not Met
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
== END 2024-10-13 09:32 | disposition home or self-care (01) ==
LOC: CHSPT 10:46
PROVIDERS: PCP Family Medicine; Visit Provider Family Medicine
DX: S32.9XXA Fracture of unspecified parts of lumbosacral spine and pelvis, initial encounter for closed fracture (principal)
CPT/HCPCS: 97110; 97112; 97161; 97530; 97750

== ENCOUNTER 2024-10-15 08:53 | Outpatient (RCR) | payer OTHER, SELFPAY ==
--- NOTE | 2024-10-15 10:41 | OPREHPOC ---
Outpatient Therapy Plan of Care This is a Multidisciplinary Plan of Care that may contain components documented by all disciplines (PT, OT, and ST.) PT Problem 1 PT Problem #1 Knowledge Deficit PT Goal 1 Goal / Goal Update Independent and compliant with HEP. Target Visit 2 PT Problem 2 PT Problem #2 Impaired Range of Motion PT Goal 1 Goal / Goal Update Pt to improve R active shoulder flexion and abduction to 160 deg to be able to reach up into cabinets. Pt to improve R active shoulder ER to T2 to improve ability to perform dressing and grooming activities. Pt to improve R active shoulder IR to T6 to improve ability to perform dressing and personal hygiene. Pt to reach full elbow extension. Pt to reach 140 deg of elbow flexion. Target Visit 12 PT Problem 3 PT Problem #3 Impaired Strength PT Goal 1 Goal / Goal Update Pt to improve gross R shoulder strength to 5/5 without pain. Pt to improve gross R elbow strength to 5/5 without pain. Target Visit 12 PT Problem 4 PT Problem #4 Impaired Functional Mobility PT Goal 1 Goal / Goal Update Pt to return to playing the drums. Pt to report 20% reduction in perceived disability on Quick D[employer]. Target Visit 12
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
--- NOTE | 2024-11-17 09:25 | PTOPDC ---
Assessment and note entered by Margret Pennington DPT Evaluation Information Assessment Status Discharge ICD-10 Condition Codes (PT) Pain in low back M54.50,Pain in right shoulder M25 .511,Pain in right elbow M25.521 Other ICD-10 Condition Codes ( S42.034A, S32.811A PT) Onset 10/15/2024 Subjective Information Patient reports that he has returned to all previous activities without R UE pain. He reports that he has returned to playing his guitar without difficulty. He reports that he is independent with HEP Reported Pain Level Pain Score 0,0,0: Self Report Assessment PT Clinical Summary Mr. Herrera attended 10 visits of skilled PT with great progress towards goals. He met all goals except for shoulder ER functional reach but still make great improvements. He has been able to return to all house hold and recreational tasks without pain or difficulty. He is independent with HEP and appropriate for DC at this time. Plan of Care PT Services Indicated No
== END 2024-11-17 17:45 | disposition home or self-care (01) ==
LOC: CHSPT 08:53
PROVIDERS: Visit Provider Orthopaedic Surgery Orthopaedic Trauma
DX: S42.034A Nondisplaced fracture of lateral end of right clavicle, initial encounter for closed fracture (principal); M54.50 Low back pain, unspecified; M25.511 Pain in right shoulder; M25.521 Pain in right elbow; S32.811A Multiple fractures of pelvis with unstable disruption of pelvic ring, initial encounter for closed fracture
CPT/HCPCS: 97110; 97112; 97140; 97161

== ENCOUNTER 2024-12-15 08:42 | Outpatient (CLI) | payer OTHER, SELFPAY ==
[2024-12-15 08:56] LABS: Hematocrit 41.7 % (40.0-54.0); Hemoglobin 13.6 g/dL (14.0-18.0); Immature Granulocyte Percent A 0.4 % (0.0-0.0); Lymphocytes Absolute Auto 1.35 K/mm3 (1.10-4.50); Mean Corpuscular HGB Conc 32.6 g/dL (32-36); Mean Corpuscular Hemoglobin 27.8 pg (27.0-31.0); Mean Corpuscular Volume 85.3 fL (78.0-102.0); Nucleated Red Blood Cells Absolute Auto 0.00 K/mm3 (0.00-0.00); Nucleated Red Blood Cells Perc 0.0 % (0-0.0); Platelet Count Result 471 K/mm3 (150-420); Red Blood Count 4.89 M/mm3 (4.70-6.10); White Blood Count 7.2 K/mm3 (4.8-10.8)
== END 2024-12-15 08:43 | disposition home or self-care (01) ==
LOC: CHSLAB 08:44
PROVIDERS: PCP Family Medicine
DX: D45 Polycythemia vera (principal)
CPT/HCPCS: 36415; 85025